=== PATIENT | male | born 1985 | race Caucasian/White ===

== ENCOUNTER 2016-10-15 02:26 | Emergency (ER) | payer SELFPAY ==
[~2016-10-15] VITALS: Ht 172.7 cm; Wt 96.2 kg
[2016-10-15 02:30] VITALS: BP 147/80
[2016-10-15] MEDS ORDERED: IBUP-1007 PO (03:57)
--- NOTE | 2016-10-15 03:57 | PHYS DOC ---
Past Medical History Past Medical History: No Pertinent History Past Surgical History: Other Additional Past Surgical Histo: RT WRIST Alcohol Use: Occasionally Drug Use: None Adult General Chief Complaint Chief Complaint: ABDOMINAL PAIN HPI HPI Patient is a 30 year ol gentleman who presents here today complaining of left rib pain that woke him from sleep today. Patient has any fevers shakes chills nausea vomiting diarrhea shortness of breath cough cold runny nose. Patient has a dysuria frequency or urgency. Patient has any abdominal pain. Patient has any trauma other than flopping onto his brother's bed before he fell asleep. Patient reports he was drinking heavily tonight. Patient is physical exam is significant for tenderness to palpation to his left lateral chest wall. Patient's chest x-ray was clear there was no infiltrates or effusions pneumothorax or fractures. Patient is given Toradol IV. Patient's chest x-ray was clear Vital signs are normal. Pulse ox 99% Assessment and plan 30-year-old gentleman with right lateral chest pain likely secondary to mechanical injury. Patient will be sent home with Tylenol to assist him with pain. Review of Systems Review of Systems Constitutional: Denies fever or chills [] Eyes: Denies change in visual acuity, redness, or eye pain [] All other review systems are negative except as documented in the history of present illness portion. Current Medications Current Medications Current Medications Medications (Trade) Dose Ordered Sig/Mariana Start Time Stop Time Status Last Admin Dose Admin Ketorolac Tromethamine (Toradol) 30 mg 1X ONCE 10/15/16 04:00 10/15/16 04:01 Allergies Allergies Allergies Coded Allergies Type Severity Reaction Last Updated Verified No Known Drug Allergies 10/15/16 No Physical Exam Physical Exam Constitutional: Well developed, well nourished, no acute distress, non-toxic appearance. [] HENT: Normocephalic, atraumatic, bilateral external ears normal, oropharynx moist, no oral exudates, nose normal. [] Eyes: PERRLA, EOMI, conjunctiva normal, no discharge. [] Neck: Normal range of motion, no tenderness, supple, no stridor. [] Cardiovascular:Heart rate regular rhythm, no murmur [] Lungs & Thorax: Bilateral breath sounds clear to auscultation [] Abdomen: Bowel sounds normal, soft, no tenderness, no masses, no pulsatile masses. [] Skin: Warm, dry, no erythema, no rash. [] Back: No tenderness, no CVA tenderness. [] Extremities: No tenderness, no cyanosis, no clubbing, ROM intact, no edema. [] Neurologic: Alert and oriented X 3, normal motor function, normal sensory function, no focal deficits noted. [] Psychologic: Affect normal, judgement normal, mood normal. [] Current Patient Data Vital Signs Vital Signs Date Time Temp Pulse Resp B/P (MAP) Pulse Ox O2 Delivery O2 Flow Rate FiO2 10/15/16 02:30 98.3 93 18 147/80 (102) 94 Room Air 98.3 EKG EKG [] Radiology/Procedures Radiology/Procedures [] Course & Med Decision Making Course & Med Decision Making Pertinent Labs and Imaging studies reviewed. (See chart for details) [] Dragon Disclaimer Dragon Disclaimer This electronic medical record was generated, in whole or in part, using a voice recognition dictation system. Departure Departure Impression: Primary Impression: Chest wall pain Disposition: HOME, SELF-CARE Condition: IMPROVED Referrals: NO PCP (PCP) Patient Instructions: Chest Wall Pain Scripts Ibuprofen (IBUPROFEN) 600 Mg Tablet 600 MG PO PRN Q6HRS Y for PAIN, #20 TAB Prov: CHLOE GILES MD 10/15/16 CHLOE GILES MD Oct 15, 2016 03:57
[2016-10-15] MEDS: KETOROLAC TROMETHAMINE 30 MG/ML INJ. IV ONE ×2 (04:00→04:15)
--- NOTE | 2016-10-15 07:15 | RAD ---
Chest, 2 views, 10/15/2016: History: Left-sided rib pain The heart size and pulmonary vascularity are normal. No pulmonary infiltrates are seen. There is no evidence of pleural fluid or pneumothorax. IMPRESSION: No acute cardiopulmonary abnormality is detected.
== END 2016-10-15 04:20 | disposition home or self-care (01) ==
LOC: ER 02:26
DX: R07.89 Other chest pain (principal)
CPT/HCPCS: 71020; J1885; 99284-25